=== PATIENT | female | born 1960 | race Caucasian/White ===

== ENCOUNTER 2016-11-16 09:53 | Emergency (ER) | payer MEDICAID, OTHER ==
[~2016-11-16] VITALS: Ht 154.9 cm; Wt 68.0 kg
[~2016-11-16 09:53] MED LIST: ENAL20TA81 PO; LACO100 PO; LEVE500 PO; ONDA4 PO; PHEN12.5 PO; PREM0.622 PO; SERO300T OR
[2016-11-16 09:55] VITALS: BP 130/77; PULSE 86; RESP 15; TEMP 98.2; O2SAT 96
[2016-11-16] MEDS ORDERED: SODIUM CHLOR 0.9% 1000 ML INJ 1,000 ML IV SCH (10:08)
[2016-11-16] MEDS ORDERED: SODIUM CHLORIDE 0.9% FLUSH 5 ML FLUSH IVF PRN (10:15)
[2016-11-16] MEDS ORDERED: ZOFR4TAB PO (10:23)
[2016-11-16] MEDS ORDERED: VASO10TA8 PO (10:23)
[2016-11-16] MEDS ORDERED: ESTR.625 PO (10:23)
[2016-11-16] MEDS ORDERED: VIMP200T PO (10:23)
[2016-11-16] MEDS ORDERED: KEPP10002 PO (10:23)
[2016-11-16] MEDS ORDERED: SERO300T PO (10:23)
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
[2016-11-16 10:57] LABS: BLOOD, URINE MOD (NEG); GLUCOSE,URINE NEG (NEG); KETONE, URINE NEG (NEG); NITRITE,URINE NEG (NEG); SQUAMOUS EPITHELIAL CELL URINE 1 /hpf (0-5); URINE COLOR YELLOW (YELLW/STRAW)
[2016-11-16 10:59] LABS: COMMENT (UR) CULTURE INDICATED; CULTURE IF INDICATED CULTURE INDICATED
[2016-11-16] MEDS ORDERED: ACETAMINOPHEN/HYDROcodone 325 MG/5 MG TAB PO ONE (11:00)
[2016-11-16 11:05] LABS: HEMATOCRIT 38.3 % (35.0-46.0); MEAN CELL VOLUME 90.5 FL (80.0-100.0); MEAN CORPUSCULAR HGB CONC 35.3 % (32.0-36.0); PLATELET COUNT 310 TH/MM3 (150-450); RED BLOOD COUNT 4.24 MIL/MM3 (4.00-5.30); RED CELL DISTRIBUTION WIDTH 13.4 % (11.6-17.2); WHITE BLOOD COUNT 7.7 TH/MM3 (4.0-11.0)
[2016-11-16 11:09] VITALS: O2SAT 98
[2016-11-16 11:15] LABS: HEMO FLAGS AUTO DIFF
--- NOTE | 2016-11-16 11:28 | RADRPT ---
EXAM DATE/TIME: 11/16/2016 11:12 [facility] COMPARISON: No previous studies available for comparison. INDICATIONS : Right flank pain with nausea and vomiting. ORAL CONTRAST: No oral contrast ingested. RADIATION DOSE: 6.68 CTDIvol (mGy) MEDICAL HISTORY : Hypertension. Diverticulitis. Renal calculi.Hemorrhoids. SURGICAL HISTORY : Appendectomy. Cholecystectomy.Hysterectomy.Bilateral inguinal hernia repair. ENCOUNTER: Initial ACUITY: 1 day PAIN SCALE: 8/10 LOCATION: Right flank TECHNIQUE: Volumetric scanning of the abdomen and pelvis was performed. Using automated exposure control and ad justment of the mA and/or kV according to patient size, radiation dose was kept as low as reasonably achievable to obtain optimal diagnostic quality images. FINDINGS: LOWER LUNGS: Small pleural effusion on the right. LIVER: Homogeneous density without lesion; measures 21 cm craniocaudal. There is no dilation of the biliary tree. Previous cholecystectomy. SPLEEN: Normal size without lesion. PANCREAS: Within normal limits. KIDNEYS: Normal in size and shape. There is no mass, stone, or hydronephrosis. ADRENAL GLANDS: Within normal limits. VASCULAR: There is no aortic aneurysm. BOWEL/MESENTERY: The stomach, small bowel, and colon demonstrate no acute abnormality. There is no free intraperitone al air or fluid. There is a small hiatal hernia. ABDOMINAL WALL: Within normal limits. RETROPERITONEUM: There is no lymphadenopathy. BLADDER: No wall thickening or mass. Prominent urachal remnant noted. REPRODUCTIVE: Within normal limits. INGUINAL: Mild bilateral inguinal scarring. No recurrent hernia. MUSCULOSKELETAL: No acute bony abnormality demonstrated. Right buttock subcutaneous gas noted, presumably recent injec tion. Please confirm clinically. CONCLUSION: 1. No renal stone or evidence of obstructive uropathy. 2. Mild nonspecific hepatomegaly. 3. Small hiatal hernia. 4. Small pleural effusion at the right lung base. Jono Ramos MD on November 16, 2016 at 11:21 Board Certified Radiologist. This report was verified electronically.
[2016-11-16 11:32] LABS: POTASSIUM 4.4 MEQ/L (3.5-5.1)
[2016-11-16] MEDS ORDERED: CIPR-9 PO (11:36)
[2016-11-16 12:02] LABS: EOSINOPHILS 5 % (0-4); NEUTROPHIL # MANUAL DIFF 5.2 TH/MM3 (1.8-7.7); PLATELET ESTIMATE SMEAR NORMAL (NORMAL); PLATELET MORPHOLOGY NORMAL (NORMAL); POLYS (SEG NEUTROPHILS) 67 % (16-70); SCAN/DIFF FINAL DIFF MANUAL; WBC DIFF SAMPLE 100
== END 2016-11-16 11:51 | disposition home or self-care (01) ==
LOC: NEPB 09:53
DX: N39.0 Urinary tract infection, site not specified (principal); B96.20 Unspecified Escherichia coli [E. coli] as the cause of diseases classified elsewhere; J90 Pleural effusion, not elsewhere classified; I10 Essential (primary) hypertension
CPT/HCPCS: 74176; 80048; 81001; 85007; 85027; 87077; 87086; 87186